=== PATIENT | male | born 1980 | race Caucasian/White ===

== ENCOUNTER 2018-07-09 19:10 | Emergency (ER) | END 2018-07-09 23:33 | disposition home or self-care (01) ==

== ENCOUNTER 2018-11-30 02:32 | Emergency (ER) | payer BC ==
[~2018-11-30] VITALS: Ht 182.9 cm; Wt 121.0 kg
[~2018-11-30 02:32] MED LIST: NAPR-985 PO
[2018-11-30 02:35] VITALS: Ht 182.9 cm; Wt 121.0 kg
[2018-11-30] MEDS ORDERED: ONDANSETRON 4 MG INJ IV STA (07:28)
[2018-11-30] MEDS ORDERED: SOD CHLORIDE 0.9% 1,000 ML IV STA (07:28)
[2018-11-30] MEDS ORDERED: HYDROmorphONE 1 MG/ML SYG IV STA (07:28)
[2018-11-30] MEDS ORDERED: PIPER-TAZO 3.375 GM IV (PMX) 100 ML IVPB ONE (10:00)
[2018-11-30] MEDS ORDERED: CIPR500T4 PO (10:01)
[2018-11-30] MEDS ORDERED: HYDR-3980 PO (10:01)
[2018-11-30] MEDS ORDERED: DICY10CA40 PO (10:01)
--- NOTE | 2018-11-30 10:08 | ERD ---
ER Documentation Chief Complaint Chief Complaint ABD PAIN XTODAY; NO OTHER S/S HPI This a 38-year-old male who has a history of gastritis is complaining of pain in the right upper quadrant. Started last night and got worse this morning. The pain began about 30 minutes after his dinner. He had some vomiting today that was nonbilious and nonbloody. No chest pain or shortness of breath. He is here for pain. The pain is crampy without radiation ROS All systems reviewed and are negative except as per history of present illness. Medications Home Meds Active Scripts Hydrocodone/Acetaminophen ([place] 10-325 Tablet) 1 Each Tablet, 1 TAB PO Q6H PRN for PAIN, #16 TAB Prov:ALESSIO HA DO 11/30/18 Dicyclomine HCl (Dicyclomine HCl) 10 Mg Capsule, 20 MG PO TID PRN for ABDOMINAL CRAMPING, #20 CAP Prov:SUREKHA HAS Brittani DO 11/30/18 Ciprofloxacin Hcl* (Ciprofloxacin Hcl*) 500 Mg Tablet, 500 MG PO BID for 7 Days, TAB Prov:ALESSIO HA DO 11/30/18 Discontinued Scripts Naproxen* (Naprosyn*) 500 Mg Tablet, 500 MG PO BID PRN for PAIN AND/OR INFLAMMATION, #30 TAB Prov:RAUL LYNCH PA-C 07/09/18 Allergies Allergies: Coded Allergies: No Known Drug Allergies (Verified Allergy, Unknown, 11/30/18) PMhx/Soc Hx Alcohol Use: No Hx Substance Use: No Hx Tobacco Use: No Smoking Status: Never smoker FmHx Family History: No coronary disease Physical Exam Vitals Vital Signs Date Temp Pulse Resp B/P (MAP) Pulse Ox O2 O2 Flow FiO2 Time Delivery Rate 11/30/18 98.2 62 18 193/106 99 02:35 (135) Physical Exam Const: Well-developed, well-nourished Head: Atraumatic, normocephalic Eyes: Normal Conjunctiva, PERRLA, EOMI, normal sclera, no nystagmus ENT: Normal External Ears, Nose and Mouth, moist mucus membranes. Neck: Full range of motion. No meningismus, no lymphadenopathy. Resp: Clear to auscultation bilaterally, no wheezing, rhonchi, rales Cardio: Regular rate and rhythm, no murmurs, S1 S2 present Abd: Soft, mild to moderate right upper quadrant tenderness non distended. Normal bowel sounds, no guarding or rebound, no pulsitile abdominal masses or bruits Skin: No petechiae or rashes, no ecchymosis , no maculopapular rash Back: No midline or flank tenderness Ext: No cyanosis, or edema, FROM x 4, normal inspection, neurovascularly intact x 4 Neur: Awake and alert, STR 5/5 x 4, sensation intact x 4, no focal findings, cerebellum intact Psych: Normal Mood and Affect Result Diagram: 11/30/18 0717 11/30/18 0717 Results 24 hrs Laboratory Tests Test 11/30/18 07:17 White Blood Count 14.0 10^3/ul Red Blood Count 5.33 10^6/ul Hemoglobin 15.6 g/dl Hematocrit 45.4 % Mean Corpuscular Volume 85.2 fl Mean Corpuscular Hemoglobin 29.3 pg Mean Corpuscular Hemoglobin Concent 34.4 g/dl Red Cell Distribution Width 12.3 % Platelet Count 349 10^3/UL Mean Platelet Volume 9.9 fl Immature Granulocytes % 0.500 % Neutrophils % 86.2 % Lymphocytes % 9.0 % Monocytes % 3.8 % Eosinophils % 0.1 % Basophils % 0.4 % Nucleated Red Blood Cells % 0.0 /100WBC Immature Granulocytes # 0.070 10^3/ul Neutrophils # 12.1 10^3/ul Lymphocytes # 1.3 10^3/ul Monocytes # 0.5 10^3/ul Eosinophils # 0.0 10^3/ul Basophils # 0.1 10^3/ul Nucleated Red Blood Cells # 0.0 10^3/ul Sodium Level 142 mmol/L Potassium Level 3.9 mmol/L Chloride Level 101 mmol/L Carbon Dioxide Level 30 mmol/L Anion Gap 11 Blood Urea Nitrogen 14 mg/dl Creatinine 0.66 mg/dl Est Glomerular Filtrat Rate mL/min > 60 mL/min Glucose Level 141 mg/dl Calcium Level 9.2 mg/dl Total Bilirubin 0.3 mg/dl Direct Bilirubin 0.00 mg/dl Indirect Bilirubin 0.3 mg/dl Aspartate Amino Transf (AST/SGOT) 23 IU/L Alanine Aminotransferase (ALT/SGPT) 40 IU/L Alkaline Phosphatase 77 IU/L Total Protein 7.7 g/dl Albumin 4.7 g/dl Globulin 3.00 g/dl Albumin/Globulin Ratio 1.56 Lipase 27 U/L Current Medications Medications Dose Sig/Jacques Start Time Status Last (Trade) Ordered Route PRN Stop Time Admin Dose Reason Admin Sodium 1,000 ml @ Q1H STAT 11/30/18 DC 11/30/18 Chloride 1,000 mls/hr IV 07:28 08:18 11/30/18 08:27 1 mg ONCE STAT 11/30/18 DC 11/30/18 Hydromorphone IV 07:28 08:18 HCl 11/30/18 07:30 (Dilaudid) Ondansetron 4 mg ONCE STAT 11/30/18 DC 11/30/18 HCl (Zofran IV 07:28 08:18 Inj) 11/30/18 07:30 Piperacillin 100 ml @ ONCE ONCE 11/30/18 Sod/ 200 mls/hr IVPB 10:00 Tazobactam 11/30/18 10:29 Sod Procedures/MDM Patient: RICARDO RENE : 1980 Age: 38 Sex: M MR #: [id number] DOS: 11/30/18 07 Ordering MD: ALESSIO HA DO Location: E/R Room/Bed: PROCEDURE: CT ABDOMEN/PELVIS WITHOUT CONTRAST CLINICAL INDICATION: 38-year-old male with abdominal pain. TECHNIQUE: The study was performed utilizing a GE [employer] VCT 64-slice CT scanner. Direct axial sections were obtained through the abdomen and pelvis without the use of intravenous contrast material. Sagittal and coronal reformations were obtained. One or more of the following dose reduction tech niques were utilized: automated exposure control, adjustment of the mA and/or kV according to patient's size, use of iterative reconstruction technique. DICOM images are available. The images were reviewed on a PACS workstation. CTD/vol = 23.09 mGy; Total Exam DLP = 1555.45 mGy.cm. COMPARISON: Right upper quadrant ultrasound November 30, 2018. FINDINGS: The lung bases are unremarkable. There is no evidence for significant pleural effusion. The liver has a normal size and contour without focal areas of abnormal density. No intrahepatic nor extrahepatic biliary ductal dilatation is seen. The gallbladder is distended without definite shadowing stones with diffuse thickened wall measuring up to 5.1 mm with pericholecystic infiltration. The pancreas is without areas of abnormal attenuation. The spleen is identified and has a normal size without abnormal density. The adrenal glands are unremarkable. The kidneys are without abnormal density. No hydroureteronephrosis nor nephroureterolithiasis is evident. The urinary bladder contains urine. There is retained stool within the ascending and transverse colon without obstruction. The appendix is not visualized however there are no periappendiceal inflammatory changes. The prostate is not enlarged. There is no significant free fluid. The aortoiliac vessels are without aneurysmal dilatation. The osseous structures are intact. IMPRESSION: 1. Distended gallbladder with diffusely thickened wall and pericholecystic infiltration suggestive of acute cholecystitis. Clinical correlation is necessary. 2. Retained stool within the proximal colon without obstruction. .Garo Max MD, MD Date Time Electronically viewed and signed by .Garo Max MD, MD on 11/30/2018 08:26 .M/ CC: ALESSIO HA DO [id number] Patient: RICARDO RENE : 1980 Age: 38 Sex: M MR #: [id number] DOS: 11/30/18 0728 Ordering MD: ALESSIO HA DO Location: E/R Room/Bed: PROCEDURE: US Abdomen. CLINICAL INDICATION: abdominal pain TECHNIQUE: Multiple real-time images were acquired of the patient's right upper quadrant abdomen and retroperitoneum utilizing a high resolution transducer. COMPARISON: None FINDINGS: The liver demonstrates increased echogenicity. The liver is normal in size and no focal solid lesions are seen. The liver measures 17.1 cm in length. The portal vein is patent with normal direction of flow. No intrahepatic biliary dilatation is seen. No gallstones are identified within the gallbladder. There is no pericholecystic fluid . There is gallbladder wall thickening, measuring 5 mm. The common bile duct measures 8 mm in maximal dimension. The pancreas is not well seen due to overlying bowel gas. No free fluid is identified. The right kidney is normal in size, and demonstrate normal echogenicity and cortical thickness. The right kidney measures 12.6 cm in long dimension. There is no evidence of hydronephrosis. There are no kidney stones. RPTAT: AA IMPRESSION: Nonspecific thickening of the gallbladder wall with no evidence of gallstones. Mild fatty infiltration of the liver. Mildly dilated CBD. .Tod Mckeon MD, MD Date Time Electronically viewed and signed by .Tod Mckeon MD, MD on 11/30/2018 08:15 .S/ CC: ALESSIO HA DO [id number] Reviewed the case with Dr. Neumann of general surgery. The patient has no fever, no elevated liver function tests, no fluid around the gallbladder on sonogram, positive fluid on CT scan, thick gallbladder wall, pain is 0 out of 10 at this time. After discussing the case with general surgery the patient will receive a dose of Zosyn IV here and will be discharged home and return if he gets any worse for a HIDA scan. Reviewed this with the patient and told him warning signs to return. Will discharge home with Jessica Chaudhari and Nicolas Departure Diagnosis: Primary Impression: Cholecystitis Condition: Stable Patient Instructions: Cholecystitis, Presumed Referrals: KALEE NEUMANN MD, APOSTOLOS A. DO November 30, 2018 10:08
[2018-11-30 11:24] VITALS: BP 144/87; PULSE 78; RESP 18
== END 2018-11-30 11:26 | disposition home or self-care (01) ==
LOC: E/R 02:32
DX: K81.9 Cholecystitis, unspecified (principal)
CPT/HCPCS: 36415; 74176; 76705; 80053; 83690; 85025; 96374; 96375; 99285; J1170; J2405; J2543; J7030